=== PATIENT | female | born 1995 | race Caucasian/White ===

== ENCOUNTER 2023-11-22 15:25 | Emergency (ER) | payer OTHER, SELFPAY ==
[2023-11-22 15:35] VITALS: BP 156/79; PULSE 94; RESP 16; TEMP 36.6; O2SAT 100
--- NOTE | 2023-11-22 15:53 | ED.URI ---
HPI - URI/Sore Throat General Chief Complaint: Upper Respiratory Infection Stated Complaint: Bodyache, Nausea, Hedache, Diarrhea Source: patient and RN notes reviewed Mode of arrival: ambulatory Limitations: no limitations History of Present Illness HPI Narrative: 28-year-old female presenting complaint sore throat, cough, nasal congestion, body aches, chills, nausea and diarrhea. Onset yesterday. Denies sob, wheezing, vomiting or fever. States her has similar symptoms, but is hospitalized and tested negative for everything. Taking otc meds for symptoms. MD elicited complaint: cough Related Data Home Medications Medication Instructions Recorded Confirmed No Home Medications 11/22/23 11/22/23 Allergies Allergy/AdvReac Type Severity Reaction Status Date / Time Sulfa (Sulfonamide Allergy Unknown Verified 11/22/23 15:41 Antibiotics) Review of Systems Review of Systems: ROS per HPI [facility] Past Medical History Medical History (Updated 11/22/23 @ 16:03 by Lydia Orozco, [employer]) No pertinent past medical history Exam Narrative: GENERAL: Ill-appearing, nontoxic EYES: PERRLA, conjunctivae clear ENT: Mucous membranes moist. TMs pearly santos with dull light reflex bilaterally; no tragal tenderness. Oropharynx erythematous without lesions or exudate, no drooling, no hoarseness, no trismus, uvula midline. No tripod positioning, muffled voice, soft palate or pharyngeal wall bulging NECK: Supple. No lymphadenopathy CHEST: Clear to auscultation, breath sounds equal. No wheezing, rhonchi, rales, or stridor. No respiratory distress, speaks in full sentences. HEART: Regular rate and rhythm. No murmur heard. SKIN: Warm, dry, no rash. NEURO: Alert and oriented x3. PSYCH: Normal mood and affect Course Course Emergency Course: Patient is aware of diagnosis, understands and agrees to treatment plan. Anticipatory guidance given. Patient agrees to follow-up as directed and is aware of reasons to seek care at the emergency department. Portions of this record may have been created with voice recognition software Level of Care: Express Care Visit Vital Signs Vital signs: Vital Signs Temperature 97.9 F 11/22/23 15:35 Pulse Rate 94 11/22/23 15:35 Respiratory Rate 16 11/22/23 15:35 Blood Pressure 156/79 H 11/22/23 15:35 Pulse Oximetry 100 12/27/23 15:35 Temperature 97.9 F 11/22/23 15:35 Pulse Rate 94 11/22/23 15:35 Respiratory Rate 16 11/22/23 15:35 Blood Pressure 156/79 H 11/22/23 15:35 Pulse Oximetry 100 11/22/23 15:35 Oxygen Delivery Room Air 11/22/23 15:38 reviewed MDM - URI/Sore Throat MDM Narrative Medical decision making narrative: Results of negative COVID, flu, strep reviewed with patient. Discussed physical exam findings. Advised supportive measures and signs/symptoms to go to the ER. Pt is appropriate for outpt treatment and f/u. Differential Diagnosis Differential diagnosis: Likely upper respiratory infection, sinusitis and viral infection Lab Data Labs: Strep Screen Presumptive Negative *(Reference Range: Negative)* Discharge Plan Discharge Clinical Impression: Viral infection Patient Disposition: Home, Self-Care Condition: Stable Instructions: Antibiotic Form, Viral Syndrome (ED) Additional Instructions: Flu and COVID negative. Rapid strep swab was negative today You will be notified in a few days if the culture comes back positive for strep, and appropriate antibiotics will be called in at that time. if symptoms are due to a viral illness, it is not treated with antibiotics. Viral symptoms can be present for up to 10-14 days. Recommend Flonase spray and Zyrtec for sinus congestion Cough syrup may cause drowsiness; avoid driving or take it at night time. Tylenol every 8 hours as needed for pain/fever Soft foods, cool liquids, warm tea. Gargle with warm s
== END 2023-11-22 16:05 | disposition home or self-care (01) ==
PROVIDERS: Emergency Provider Nurse Practitioner Family
DX: B34.9 Viral infection, unspecified (principal); Z20.822 Contact with and (suspected) exposure to COVID-19
CPT/HCPCS: 87081; 87426; 87804; 87880; 99213; C9803; G0463